=== PATIENT | female | born 1945 | race Caucasian/White ===

== ENCOUNTER 2016-07-21 16:34 | Emergency (ER) | payer MEDICARE, OTHER ==
[~2016-07-21 16:34] MED LIST: FLEXERIL 10 MG10 MG PO; NASONEX SPRAY 117 GM; SYNTHROID25 MCG PO
[2016-07-21 17:29] LABS: HEMOGLOBIN 14.8 gm/dl (12.3-15.3); RED BLOOD COUNT 4.77 M/UL (4.00-5.10); WHITE BLOOD COUNT 14.2 K/UL (4.5-11.0)
[2016-07-21 17:50] LABS: BUN/CREATININE RATIO 13 (0-10)
[2016-12-03] MEDS ORDERED: BREO ELLIPTA 11 EACH INH (23:19)
[2016-12-03] MEDS ORDERED: ASPIRIN81 MG PO (23:20)
[2016-12-06] MEDS ORDERED: ZOVIRAX 5% TOP (14:49)
[2016-12-06] MEDS ORDERED: LEVAQUIN750 MG PO (14:51)
== END 2016-07-21 21:04 | disposition home or self-care (01) ==
LOC: ER1 16:34
PROVIDERS: Emergency Medicine
DX: J18.9 Pneumonia, unspecified organism (principal); E03.9 Hypothyroidism, unspecified; F17.210 Nicotine dependence, cigarettes, uncomplicated; Z88.0 Allergy status to penicillin
CPT/HCPCS: 36415; 71010; 80053; 82550; 82553; 83605; 83874; 83880; 84484; 85025; 87040; 93005; 96374; 96375; 99283; J0696; J1885; J2270; J2405; J7030; J7050

== ENCOUNTER → 2016-07-29 | Outpatient (CLI) | payer MEDICARE, OTHER ==
[~2016-07-29] MED LIST changes: +ASPIRIN81 MG PO; +BREO ELLIPTA 11 EACH INH; +LEVAQUIN750 MG PO; +ZOVIRAX 5% TOP
== END ==
LOC: KOH-I 10:18
DX: R05 Cough (principal)
CPT/HCPCS: 71020

== ENCOUNTER → 2020-11-23 | Outpatient (CLI) | payer MEDICARE, OTHER | LOC: KOH-I 14:00 | DX: Z12.2 Encounter for screening for malignant neoplasm of respiratory organs (principal); R91.8 Other nonspecific abnormal finding of lung field; F17.210 Nicotine dependence, cigarettes, uncomplicated | CPT/HCPCS: 71271 ==